=== PATIENT | male | born 1990 | race Caucasian/White ===

== ENCOUNTER 2022-10-28 12:11 | Emergency (ER) | payer OTHER ==
[~2022-10-28] VITALS: Ht 172.7 cm; Wt 70.5 kg
[2022-10-28 12:14] VITALS: TEMP 97.8
[2022-10-28 13:16] LABS: BASO % 0.3 % (0.0-2.0); EOS # 0.1 K/mm3 (0.0-0.7); EOS % 2.3 % (0.0-4.0); GRAN # 3.5 K/mm3 (1.4-6.5); GRAN % 60.5 % (42.2-75.2); HEMATOCRIT 43.1 % (42.0-52.0); HEMOGLOBIN 15.5 g/dl (13.5-18.0); LYMPH # 1.6 K/mm3 (1.2-3.4); LYMPH % 27.3 % (20.0-51.0); MEAN CELL VOLUME 84 fl (80.0-100.0); MEAN CORPUSCULAR HEMOGLOBIN 30 pg (27-31); MEAN CORPUSCULAR HGB CONC 36 g/dl (33.0-37.0); MEAN PLATELET VOLUME 8.8 fl (7.4-10.4); MONO # 0.5 K/mm3 (0.1-0.6); MONO % 9.4 % (1.7-9.3); PLATELET COUNT 255 K/mm3 (130-400); RED BLOOD COUNT 5.13 M/mm3 (4.20-5.60); REDCELL DISTRIBUTION WIDTH-CV 11.3 % (11.5-14.5)
[2022-10-28 13:33] LABS: ALBUMIN 4.9 gm/dL (3.5-5.0); BILIRUBIN,TOTAL 0.7 mg/dL (0.2-1.2); CALCIUM 10.1 mg/dL (8.4-10.2); CREATININE, serum 1.01 mg/dL (0.72-1.25); POTASSIUM 3.9 mmol/L (3.5-4.5); TOTAL PROTEIN 8.1 gm/dL (6.2-8.1)
[2022-10-28 14:53] LABS: COLLECTION METHOD CLEAN CATCH
[2022-10-28 15:10] LABS: MUCOUS Present (NOT PRESENT); SQUAMOUS EPITHELIAL 0-2 /hpf (0-10); URINE BACTERIA None Seen /hpf (NONE SEEN); URINE RBC 20-50 /hpf (0-2)
[2022-10-28 15:11] LABS: PH 7.5 (5.0-8.5); URINE APPEARANCE Clear (CLEAR/HAZY); URINE COLOR Yellow (YELLOW); URINE GLUCOSE Negative (NEGATIVE); URINE KETONE TRACE (NEGATIVE); URINE PROTEIN(semi-quant) 1+ (NEGATIVE)
[2022-10-28 15:12] LABS: URINE BLOOD 2+ (NEGATIVE); URINE NITRATE Negative (NEGATIVE)
[2022-10-28] MEDS ORDERED: ROXICODONE 55 MG/TAB PO (15:17)
[2022-10-28] MEDS ORDERED: ZOFRAN ODT4 MG PO (15:17)
[2022-10-28] MEDS ORDERED: NAPROSYN500 MG PO (15:17)
[2022-10-28] MEDS ORDERED: FLOMAX 0.40.4 MG/CAP PO (15:17)
[2022-10-28 15:40] VITALS: BP 114/67; PULSE 82
== END 2022-10-28 15:42 | disposition home or self-care (01) ==
LOC: COL.ER 12:11
PROVIDERS: Emergency Medicine
DX: N13.2 Hydronephrosis with renal and ureteral calculous obstruction (principal)
CPT/HCPCS: J1885; J2270; J2765; J7120; Q9967

== ENCOUNTER 2024-04-15 11:43 | Outpatient (CLI) | payer OTHER ==
[~2024-04-15] VITALS: Ht 172.8 cm; Wt 71.8 kg
[~2024-04-15 11:43] MED LIST: FLOMAX 0.40.4 MG/CAP PO; NAPROSYN500 MG PO; ROXICODONE 55 MG/TAB PO; ZOFRAN ODT4 MG PO
[2024-04-15] MEDS ORDERED: B-121000 MCG PO (12:06)
[2024-04-15] MEDS ORDERED: MOBIC 7.5MG7.5 MG PO (12:06)
[2024-04-15] MEDS ORDERED: ONE DAILY ESSE0.5 M1 PO (12:07)
[2024-04-15] MEDS ORDERED: FLEXERIL 1010 MG/TAB PO (12:07)
[2024-04-15] MEDS ORDERED: TYLENOL 500MG500 MG PO (12:07)
[2024-04-15] MEDS ORDERED: ZYRTEC 10MG10 MG PO (12:08)
[2024-04-15 12:33] VITALS: BP 112/66; PULSE 77; TEMP 97.8
[2024-04-15 13:39] VITALS: BP 120/84; PULSE 16
--- NOTE | 2024-04-15 13:44 | NUR ---
PATIENT ALERT AND ORIENTED, DENIES DIZZINESS, CHEST PAIN, NAUSEA, OR LIGHTHEADEDNESS. VSS. PATIENT REPORTED IMPROVED TOE NUMBNESS AND "LEG BUZZING" AND "WARM HEAD" SENSATION. PATIENT TRANSPORTED VIA WHEELCHAIR TO [place] [id number], VITAL SIGNS TAKEN ON ARRIVAL. VSS. PATIENT PROVIDED CALL LIGHT AND PERSONAL PHONE, X3 BEDRAILS IN PLACE, BED IN LOWEST POSITION. TRANSFER OF CARE TO [facility]
[2024-04-15 13:45] VITALS: BP 116/79; PULSE 76
--- NOTE | 2024-04-15 13:54 | NUR ---
Pt returned to [facility] 10 post TTT. Pt alert, free of complaints. Muffin and coffee provided. Call light in reach. He denies further needs at this time.
[2024-04-15 14:00] VITALS: BP 122/76; PULSE 77
[2024-04-15 14:30] VITALS: BP 120/74; PULSE 88
--- NOTE | 2024-04-15 14:35 | NUR ---
Pt rested comfortably in bed following TTT. DC instructions reviewed, he expresses understanding. He is steady on feet using cane. He ate muffin and cup of coffee during recovery. Is free of complaints. IV DC'd, site wrapped with coban. Pt is escorted out to elevator with belonigings.
== END 2024-04-15 14:35 | disposition home or self-care (01) ==
LOC: COL.CAR 11:43
DX: R55 Syncope and collapse (principal); R53.1 Weakness